=== PATIENT | female | born 1970 | race Caucasian/White ===

== ENCOUNTER 2017-11-30 15:19 | Emergency (ER) | payer OTHER ==
[~2017-11-30] VITALS: Ht 165.1 cm; Wt 72.6 kg
[2017-11-30 15:30] VITALS: Ht 165.1 cm; Wt 72.6 kg
[2017-11-30 17:37] VITALS: BP 140/90
== END 2017-11-30 17:37 | disposition home or self-care (01) ==
LOC: ED 15:19
DX: S52.501A Unspecified fracture of the lower end of right radius, initial encounter for closed fracture (principal); V43.92XA Unspecified car occupant injured in collision with other type car in traffic accident, initial encounter; Y93.89 Activity, other specified; Y92.89 Other specified places as the place of occurrence of the external cause; Y99.8 Other external cause status
CPT/HCPCS: J2001